=== PATIENT | male | born 1975 | race African-American/Black ===

== ENCOUNTER 2017-01-09 12:49 | Emergency (ER) | payer OTHER ==
[~2017-01-09] VITALS: Ht 170.2 cm; Wt 93.0 kg
--- NOTE | ~2017-01-09 | CR141 ---
[facility] A Service of [facility] RADIOLOGY TEXT RESULTS PATIENT: NANCY SANDOVAL LOCATION: [facility] : 75 UNIT #: [id number] AGE: [address]: Izzy Foster SEX: M ORDER DR: [id number] [facility] [address] [place], [place] [address] [id number] MR#: [id number] #: [id number] NAME: NANCY SANDOVAL : 1975 SEX: M STUDY DATE/TIME: 01/09/2017 13:17 UNIT: [facility] ROOM: STUDY DESCRIPTION: CR Hand Min 3 Views Lt Attending Physician: Izzy Foster Pa-C Ordering Physician: Izzy Foster Pa-C Primary Care Physician: Primary Care Physician No MEDICAL IMAGING REPORT This report is preliminary unless electronic signature is present EXAM Left hand series INDICATION Left hand pain after an injury today. PROCEDURE Three views left hand. COMPARISON None. FINDINGS No acute fracture or dislocation. IMPRESSION No acute findings. Dictated by... Aj Pedersen M.D. THIS IS AN ELECTRONICALLY VERIFIED REPORT Aj Pedersen M.D. at 01/10/2017 8:16 AM RAUL/tara TD: 01/09/2017 14:26 JOB #: [id number] MEDICAL IMAGING REPORT Page 1 of 1 COPY
--- NOTE | ~2017-01-09 | CR281 ---
[facility] A Service of [facility] RADIOLOGY TEXT RESULTS PATIENT: NANCY SANDOVAL LOCATION: [facility] : 75 UNIT #: [id number] AGE: [address]: Izzy Foster SEX: M ORDER DR: [id number] [facility] [address] [place], [place] [address] [id number] E MR#: [id number] #: [id number] NAME: NANCY SANDOVAL : 1975 SEX: M STUDY DATE/TIME: 01/09/2017 13:15 UNIT: [facility] ROOM: STUDY DESCRIPTION: CR Wrist Min 3 View Lt Attending Physician: Izzy Foster Pa-C Ordering Physician: Izzy Foster Pa-C Primary Care Physician: No Primary Care Physician MEDICAL IMAGING REPORT This report is preliminary unless electronic signature is present EXAM Left wrist series INDICATIONS Left wrist pain and swelling after an injury today. PROCEDURE Three views left hand COMPARISON None. No acute fracture or dislocation. IMPRESSION No acute findings Dictated by... Aj Pedersen M.D. THIS IS AN ELECTRONICALLY VERIFIED REPORT Aj Pedersen M.D. at 01/10/2017 8:16 AM Jon TD: 01/09/2017 14:22 JOB #: [id number] MEDICAL IMAGING REPORT Page 1 of 1 COPY
== END 2017-01-09 14:29 | disposition home or self-care (01) ==
LOC: CED 12:49
DX: S60.222A Contusion of left hand, initial encounter (principal); F17.210 Nicotine dependence, cigarettes, uncomplicated; W22.8XXA Striking against or struck by other objects, initial encounter; Y92.9 Unspecified place or not applicable
CPT/HCPCS: 73110; 73130; 99283

== ENCOUNTER 2017-02-20 10:55 | Emergency (ER) | payer OTHER ==
[~2017-02-20] VITALS: Ht 170.2 cm; Wt 99.3 kg
== END 2017-02-20 11:43 | disposition home or self-care (01) ==
LOC: CED 10:55 → CFTX 10:55
DX: S60.413A Abrasion of left middle finger, initial encounter (principal); I10 Essential (primary) hypertension; F17.200 Nicotine dependence, unspecified, uncomplicated; X58.XXXA Exposure to other specified factors, initial encounter; Y92.009 Unspecified place in unspecified non-institutional (private) residence as the place of occurrence of the external cause
CPT/HCPCS: 99283